=== PATIENT | female | born 1945 | race Caucasian/White ===

== ENCOUNTER → 2016-12-15 | Outpatient (CLI) | payer OTHER ==
[~2016-12-15] MED LIST: CALC-354 PO; CHLO4TAB70 PO; DICL1GEL12 TOP; FLUO0.05 TOP; GLUCTAB54 PO; LISI-461 PO; METR0.754 TOP; MULT-506 PO; TROL10LO PO
[2016-12-15 11:12] LABS: ALT/SGPT 19 U/L (12-78); AST/SGOT 11 U/L (15-37); BLOOD UREA NITROGEN 15 mg/dl (7-18); BUN/CREATININE RATIO 18.1 (10-20); CALCIUM 9.1 mg/dl (8.5-10.1); CARBON DIOXIDE 30 mmol/L (21-32); CHLORIDE 107 mmol/L (98-107); CREATININE 0.82 mg/dl (0.60-1.20); GLUCOSE 84 mg/dl (70-99); SODIUM 144 mmol/L (136-145)
[2016-12-15 11:15] LABS: ALB/GLOB RATIO 1.9 (0.9-2); ALKALINE PHOSPHATASE 50 U/L (45-117); CHOLESTEROL 315 mg/dl (0-200); CHOLESTEROL/HDL RATIO 3.5; HDL CHOLESTEROL 89 mg/dl; LDL CHOLESTEROL CALCULATED 208 mg/dl; TRIGLYCERIDES 88 mg/dl (0-150); VERY LOW DENSITY LIPOPROT CALC 18 mg/dl
== END | disposition home or self-care (01) ==
LOC: C.LABBC 08:21
PROVIDERS: ATTEND Family Medicine
DX: E78.5 Hyperlipidemia, unspecified (principal); I10 Essential (primary) hypertension

== ENCOUNTER → 2017-06-29 | Outpatient (CLI) | payer OTHER ==
[2017-06-29 11:24] LABS: ALT/SGPT 25 U/L (12-78); BLOOD UREA NITROGEN 14 mg/dl (7-18); BUN/CREATININE RATIO 18.5 (10-20); CALCIUM 9.1 mg/dl (8.5-10.1); CARBON DIOXIDE 28 mmol/L (21-32); CHLORIDE 106 mmol/L (98-107); CHOLESTEROL 325 mg/dl (0-200); CREATININE 0.74 mg/dl (0.60-1.20); GLUCOSE 91 mg/dl (70-99); POTASSIUM 3.9 mmol/L (3.5-5.1); SODIUM 140 mmol/L (136-145)
[2017-06-29 11:34] LABS: ALB/GLOB RATIO 1.6 (0.9-2); ALKALINE PHOSPHATASE 57 U/L (45-117); AST/SGOT 20 U/L (15-37); CHOLESTEROL/HDL RATIO 3.6; HDL CHOLESTEROL 90 mg/dl; LDL CHOLESTEROL CALCULATED 218 mg/dl; TRIGLYCERIDES 83 mg/dl (0-150); VERY LOW DENSITY LIPOPROT CALC 17 mg/dl
== END | disposition home or self-care (01) ==
LOC: C.LABBC 08:49
PROVIDERS: ATTEND Family Medicine
DX: E78.5 Hyperlipidemia, unspecified (principal); I10 Essential (primary) hypertension; M19.049 Primary osteoarthritis, unspecified hand; M85.80 Other specified disorders of bone density and structure, unspecified site

== ENCOUNTER → 2017-08-11 | Outpatient (CLI) | payer OTHER ==
--- NOTE | 2017-08-11 13:42 | MAMMOGRAPHY REPORT ---
BILATERAL DIGITAL SCREENING MAMMOGRAM WITH CAD: 08/11/2017 CLINICAL HISTORY: Routine screening. Patient has no complaints. TECHNIQUE: Current study was also evaluated with a Computer Aided Detection (CAD) system. Bilateral CC and MLO views were obtained. COMPARISON: Comparison is made to exams dated: 08/05/2016 mammogram, 07/31/2015 mammogram, 07/30/2014 ultrasound, 07/30/2014 mammogram, 03/13/2012 mammogram, and 03/09/2010 mammogram - [facility]. BREAST COMPOSITION: There are scattered areas of fibroglandular density in both breasts. FINDINGS: No suspicious masses, calcifications, or areas of architectural distortion are noted in ei ther breast. There has been no significant interval change compared to prior exams. A linear scar ma rker denotes a scar on the left anterior breast. IMPRESSION: ACR BI-RADS CATEGORY 1: NEGATIVE There is no mammographic evidence of malignancy. A 1 year screening mammogram is recommended. The pa tient will receive written notification of the results. Approximately 10% of breast cancers are not detected with mammography. A negative mammographic report should not delay biopsy if a clinically suggestive mass is present. Criselda Barrow M.D. /:08/11/2017 12:20:19 [employer] Parer: Letty Gomez, [facility] letter sent: Normal 1/2 BI-RADS Code: ACR BI-RADS Category 1: Negative
== END | disposition home or self-care (01) ==
LOC: C.MAMM 09:12
PROVIDERS: ATTEND Obstetrics & Gynecology
DX: Z12.31 Encounter for screening mammogram for malignant neoplasm of breast (principal)

== ENCOUNTER → 2017-09-04 | Outpatient (CLI) | payer OTHER | END | disposition home or self-care (01) | LOC: C.PAPS 18:30 | PROVIDERS: ATTEND Obstetrics & Gynecology | DX: Z01.419 Encounter for gynecological examination (general) (routine) without abnormal findings (principal) ==

== ENCOUNTER → 2018-01-22 | Outpatient (CLI) | payer OTHER ==
[2018-01-22 14:40] LABS: ALT/SGPT 23 U/L (12-78); BLOOD UREA NITROGEN 12 mg/dl (7-18); CALCIUM 8.8 mg/dl (8.5-10.1); CARBON DIOXIDE 27 mmol/L (21-32); CREATININE 0.76 mg/dl (0.60-1.20); GLUCOSE 91 mg/dl (70-99); POTASSIUM 3.8 mmol/L (3.5-5.1); SODIUM 140 mmol/L (136-145)
[2018-01-22 14:44] LABS: CHOLESTEROL 183 mg/dl (0-200); LDL CHOLESTEROL CALCULATED 92 mg/dl
== END | disposition home or self-care (01) ==
LOC: C.LABBC 09:27
PROVIDERS: ATTEND Family Medicine
DX: E78.5 Hyperlipidemia, unspecified (principal)

== ENCOUNTER → 2018-03-01 | Outpatient (CLI) | payer OTHER | END | disposition home or self-care (01) | LOC: C.MAMM 10:12 | PROVIDERS: ATTEND Family Medicine | DX: Z78.0 Asymptomatic menopausal state (principal) ==

== ENCOUNTER 2025-05-02 05:25 | Observation (INO) ==
--- NOTE | 2025-01-22 16:22 | PAT Medication Instructions ---
Medication Instructions Date of Service January 22, 2025 Home Medications Medication Instructions Recorded triamcinolone acetonide 0.1 % 1 applic topical DAILY PRN rash 2 01/22/25 topical cream weeks #15 grams calcium ER 600 mg (as carb,cit)-D3 12.5 mcg (500 unit) tablet, ext.rel (Citracal-D3 Slow Release) 1 tab PO DAILY multivitamin (Daily Multi-Vitamin tablet) 1 tab PO DAILY cetirizine 10 mg capsule (Zyrtec) 10 mg PO DAILY PRN allergies diclofenac sodium 1 % topical gel (Voltaren Arthritis Pain) 1 inch topical BID PRN Pain losartan 100 mg-hydrochlorothiazide 12.5 mg tablet 1 tab PO QAM triamcinolone acetonide 0.1 % topical cream 1 applic topical DAILY PRN rash STOP taking 24 hours before surgery diclofenac sodium 1 % topical gel (Voltaren Arthritis Pain) 1 inch topical BID PRN Pain triamcinolone acetonide 0.1 % topical cream 1 applic topical DAILY PRN rash DO NOT take the morning of surgery calcium ER 600 mg (as carb,cit)-D3 12.5 mcg (500 unit) tablet, ext.rel (Citracal-D3 Slow Release) 1 tab PO DAILY multivitamin (Daily Multi-Vitamin tablet) 1 tab PO DAILY cetirizine 10 mg capsule (Zyrtec) 10 mg PO DAILY PRN allergies losartan 100 mg-hydrochlorothiazide 12.5 mg tablet 1 tab PO QAM MORNING OF SURGERY: NOTHING TO EAT OR DRINK AFTER MIDNIGHT Take evening before surgery cetirizine 10 mg capsule (Zyrtec) 10 mg PO DAILY PRN allergies (if needed) Other Notes If you have any questions please call us at [phone] or [phone] or [phone] or [phone]
--- NOTE | 2025-01-28 11:22 | Anesthesiology Consultation ---
Date of Service January 28, 2025 Assessment & Plan (1) Encounter for pre-operative examination: - awaiting [place] PCP response to workload note regarding below symptoms/abnormal pre-op testing/clearance. - dizziness described as "drifting to the right side when walking in the middle of the night" since starting HCTZ; bilat bruit vs murmur radiation on exam today ; denies presyncope, syncope, visual changes, headache-states occasionally has left arm numbness when laying in bed which resolves with position change; reports home reading this morning at 155/85. Denies change in chronic leg swelling. Case discussed in detail with Dr. Colón who advised patient will need PCP clearance, he states would not require testing from an anesthesia standpoint-will defer to PCP. Patient made aware at PAT appointment, she verbalized understanding and denied questions or concerns. Surgeon's office made aware. - PCP office visit 01/22/25 [place]: "...intermittent leg swelling. right > left. legs will get swollen for a few days then improve. did have chips last night. once she elevates legs, swelling seems to improve. has knee OA, she has upcoming procedure for right knee, feels this is contributing to knee swelling. no calf redness, warmth, tenderness. rash on legs...hypertension...Not at goal. Will add hctz to current meds, discussed medication and possible s/e. Low salt diet. Discussed f/u, she would like to f/u in approx 2 mos due to have knee surgery in a few weeks. F/u sooner PRN..." - Outpatient joint assessment: Patient is currently scheduled for inpatient pathway. If re-evaluated and patient/surgeon requests outpatient pathway, patient is not a candidate for outpatient joint program. Chart Review Chart Review: Pending: Refer to Additional Notes / Consult section and Patient seen in Pre Admission Testing Teaching & Discussion Pre-Anesthesia Teaching/Discussion Notes: Instructed NPO after midnight before surgery, except medications with 15 cc of water. Medication instructions provided according to the PAT guidelines. History Surgery Operation Date: 02/17/25 07:15 Proposed Procedures p Right Total Knee Arthroplasty - Alexandre Calabrese, Height/Weight Height: 5 ft 5 in Weight: 63.2 kg Allergies Allergy/AdvReac Type Severity Reaction Status Date / Time latex Allergy Mild RASH Verified 01/22/25 15:23 nickel Allergy Mild Rash Verified 01/22/25 15:41 Medications Home Medications Medication Instructions Recorded Confirmed Last Taken calcium ER 600 mg (as carb,cit)-D3 1 tab PO DAILY 06/01/20 01/22/25 Unknown 12.5 mcg (500 unit) tablet, ext.rel (Citracal-D3 Slow Release) multivitamin (Daily Multi-Vitamin 1 tab PO DAILY 06/01/20 01/22/25 Unknown tablet) cetirizine 10 mg capsule (Zyrtec) 10 mg PO DAILY PRN allergies 07/18/23 01/22/25 Unknown diclofenac sodium 1 % topical gel 1 inch topical BID PRN Pain 01/22/25 01/22/25 Unknown (Voltaren Arthritis Pain) losartan 100 1 tab PO QAM 01/22/25 01/22/25 Unknown mg-hydrochlorothiazide 12.5 mg tablet triamcinolone acetonide 0.1 % 1 applic topical DAILY PRN rash 2 01/22/25 01/22/25 Unknown topical cream weeks #15 grams Past Medical History Medical History (Updated 01/29/25 @ 08:43 by Gena Pantoja PA-C) Aortic stenosis mild on 06/2022 echo (MANPREET 1.0 cm2, max PG 19 mmHg, mean PG 10 mmHg) Benign essential HTN controlled, stable per pt GERD (gastroesophageal reflux disease) rare, diet triggered Hyperlipidemia Mitral regurgitation Mixed conductive and sensorineural hearing loss of left ear with restricted hearing of right ear no hearing aides Osteoarthritis of knees, bilateral Osteopenia Varicose veins of both lower extremities Patient denies h/o stroke, seizures, heart attack, heart failure, DM, blood clots/DVTs or blood transfusions. Exercise / Class Metabolic Activity II 4-5 Yardwork/Stairs/Walk up hill (denies chest discomfort or shortness of breath with one flight of stairs) Past Family History Family History (Updated 01/28/25 @ 11:28 by Gena Pantoja PA-C) Mother Hypertension Stroke syndrome Cardiac disorder FHx: allergies Aortic aneurysm Father Chronic liver disease Renal cell carcinoma Grandfather (Paternal) Acute myocardial infarction Daughter Diabetes Thyroid disease Brother Prostate cancer Grandmother (Maternal) Stroke syndrome Other Cancer Hearing loss No family history of adverse response to anesthesia No family history of bleeding disorder Denies family history of Malignant hypothermia due to anesthesia Colon cancer Ovarian cancer Myocardial infarction Breast cancer Bleeding disorder Past Surgical History Surgical History H/O breast surgery (2014) left retroareolar excision- blocked milk duct Hx of cataract surgery (2013) b/l Hx of eye surgery left eye, had corneal ulcer from a contact ~ 40 years ago Hx of tonsillectomy (1949) Hx of tooth extraction has 4 implants Past Anesthesia History No Hx of Anesthesia Complications and No Family Hx of Anesthesia Complications History of PONV No Hx of PONV and No Hx of Motion Sickness Social History Smoking Status: Never smoker Do You Dip or Chew Tobacco: No Hx Alcohol Use: Yes Alcohol type: wine alcohol intake frequency: holidays/special occasions only Hx Substance Use: No substance use type: does not use Review of Systems Infrequent snoring, denies witnessed apneas. Patient denies chest pain, shortness of breath, dyspnea on exertion, fever, chills, cough, wheezing, or palpitations. Physical Exam Vital Signs Vitals BP 145/87 P 73 TEMP 98.3 SP02 98% on RA RESP 18 Physical Patient resting comfortably in chair in no acute distress, alert and oriented, responding appropriately throughout visit Full cervical extension range of motion without pain TMD 3.5 finger breadths Mallampati Score 2 Dentition: several implants and several caps/crowns; denies chipped or loose teeth, or bridges Lungs: normal respiratory effort. Good air movement, clear throughout to auscultation, no adventitious breath sounds Cardiac: regular rate and rhythm, 3/6 systolic murmur Carotid arteries: bruit bilat Lab Results Anesthesia Preop Results Results Anesthesia Widget: WBC 6.11 K/ul (4.8-10.8) 01/28/25 Hgb 10.1 g/dl (12.0-16.0) L 01/28/25 Hct 31.0 % (37.0-47.0) L 01/28/25 Plt 360 K/uL (130-400) 01/28/25 Na 128 mmol/L (136-145) L 01/28/25 K 3.9 mmol/L (3.5-5.1) 01/28/25 Cl 94 mmol/L (98-107) L 01/28/25 CO2 28 mmol/L (21-32) 01/28/25 BUN 15 mg/dl (6-23) 01/28/25 Creat 0.69 mg/dl (0.6-1.2) 01/28/25 Glucose Level 90 mg/dl (70-99(Fasting)) 01/28/25 PT 10.3 Seconds (9.0-12.0) 01/28/25 PTT 33 Seconds (21-31) H 01/28/25 INR 0.9 (0.9-1.1) 01/28/25 Blood Type O Positive 01/28/25 Antibody Screen NEGATIVE 01/28/25 Testing Electrocardiogram Date: 01/28/25 NSR, rate 73 bpm RBBB Chest X-Ray Date: 01/28/25 Heart size and pulmonary vasculature are normal. No effusion or consolidation. There is mild ectasia of the aortic knob. No acute findings. Echocardiogram Date: 07/05/22 LVEF 60-65% No regional wall motion abnormalities Mildly dilated atria Moderate cLVH Mild valvular aortic stenosis (MANPREET 1.0 cm2, max PG 19 mmHg, mean PG 10 mmHg) Mild mitral regurgitation
--- NOTE | 2025-05-01 14:17 | History & Physical Report ---
Date of Service May 01, 2025 Assessment & Plan (1) Osteoarthritis of right knee: We will proceed with a right total knee arthroplasty. Postoperatively, she will be started on aspirin for DVT prophylaxis and kept overnight in the hospital for postop medical management. She plans to use energy physical therapy upon discharge. History of Present Illness Chief Complaint: Osteoarthritis of the right knee. Primary Care Provider: Griselda Salazar MD Jenny is a pleasant 80-year-old female who has been dealing with chronic increasing right knee pain. X-rays and clinical exam have been diagnostic for advanced arthritis of the right knee. After failing extensive conservative treatment, she has elected proceed with a right total knee arthroplasty. Allergies Allergy/AdvReac Type Severity Reaction Status Date / Time latex Allergy Mild RASH Verified 04/28/25 09:24 nickel Allergy Mild Rash Verified 04/28/25 09:24 Home Medications Medication Instructions Recorded Confirmed Type multivitamin (Daily Multi-Vitamin 1 tab PO DAILY 06/01/20 04/28/25 History tablet) cetirizine 10 mg capsule (Zyrtec) 10 mg PO DAILY PRN allergies 07/18/23 04/28/25 History diclofenac sodium 1 % topical gel 1 inch topical BID PRN Pain 01/22/25 04/28/25 History (Voltaren Arthritis Pain) metoprolol succinate 100 mg 100 mg PO QPM #90 tabs 02/13/25 04/28/25 Rx tablet,extended release 24 hr acetaminophen 500 mg tablet 500 mg PO Q6H PRN prn 04/22/25 04/28/25 History ascorbic acid (vitamin C) 500 mg 1,000 mg PO QPM 04/22/25 04/28/25 History tablet (Vitamin C) losartan 100 mg tablet 100 mg PO QPM 04/22/25 04/28/25 History Past Med/Surg History Problem List Cardiac murmur Dysfunction of left eustachian tube Allergic rhinitis (Chronic) Benign essential hypertension (Chronic) Hyperlipidemia (Chronic) Mixed conductive and sensorineural hearing loss of left ear with restricted hearing of right ear (Chronic) Osteopenia (Chronic) Primary osteoarthritis, unspecified hand (Chronic) Varicose veins of both lower extremities (Chronic) Medical History Cardiac murmur initial appt with Dr Brown 07/01/2025 Scoliosis mild GERD (gastroesophageal reflux disease) rare, diet triggered Mitral regurgitation Aortic stenosis mild on 06/2022 echo (MANPREET 1.0 cm2, max PG 19 mmHg, mean PG 10 mmHg), scheduled to see Dr Brown initial visit 07/01/2025 Benign essential HTN controlled, stable per pt 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 no hearing aides Hyperlipidemia Osteopenia Osteoarthritis of knees, bilateral Surgical History Hx of eye surgery left eye, had corneal ulcer from a contact ~ 40 years ago Hx of tooth extraction has 4 implants H/O breast surgery (2014) left retroareolar excision- blocked milk duct Hx of cataract surgery (2013) bilateral Hx of tonsillectomy (1949) Family History Mother Hypertension Stroke syndrome Cardiac disorder FHx: allergies Aortic aneurysm Father Chronic liver disease Renal cell carcinoma Grandfather (Paternal) Acute myocardial infarction Daughter Diabetes Thyroid disease Brother Prostate cancer Grandmother (Maternal) Stroke syndrome Other Cancer Hearing loss No family history of adverse response to anesthesia No family history of bleeding disorder Denies family history of Malignant hypothermia due to anesthesia Colon cancer Ovarian cancer Myocardial infarction Breast cancer Bleeding disorder Social History Smoking Status: Never smoker Second Hand Exposure: No; Do You Dip or Chew Tobacco: No; Tobacco Cessation Education Requested by Patient: No Hx Alcohol Use: Yes Alcohol type: wine Alcohol Intake Frequency: Monthly or Less Hx Substance Use: No Preferred Language: Surinamese Communication Ability: Effective Visual Impairment: No Limitations Hearing Ability: Hard of Hearing Car Seat Coverer Required: No Beliefs That Will Affect Care: None marital status: Current Living Situation: Spouse Current Living Situation Comment: lives with spouse current occupational status: retired current occupation: used to work as an application integration architect How many Children do You have: 2 Other Information That Helps Us Care for You: No Feels Safe at Home: Yes Safety Concerns: Feels Safe At This Time Childhood Exposure to Second-Hand Smoke: Yes Diet: regular caffeine: Yes (1 cup/day) during the past year weight has: remained stable Dental Care, Regularly: Yes Physical Activity Frequency: Daily Seatbelt Use: always Sunscreen Use: No Assistive Devices: None Review of Systems All systems reviewed & are unremarkable except as noted in HPI & below. Physical Exam Physical exam of the right knee, she has slight varus deformity. Tenderness palpation of the distal medial femoral condyle and over the medial joint line.. Constitutional WD/WN, vitals as above Eyes PERRL, conjunctivae normal, anicteric sclerae ENMT external ear and nose normal, oropharynx normal Neck trachea midline, no thyromegaly Respiratory normal respiratory effort Cardiovascular RRR, no murmur, no edema Gastrointestinal (Abdomen) normal bowel sounds, soft, nontender, no hepatosplenomegaly Psychiatric A+Ox3, euthymic affect Results & Data Results & Data Laboratory Results . Diagnostic Findings X-rays of the right knee show advanced osteoarthritis with joint space narrowing, osteophyte formation, and [id number] articulation PG Care Time/CCT Total # of Minutes Spent Total Time Spent with Patient: Total time spent is greater than 50% in coordination of care (as documented) at patient's floor/unit and/or counseling patient: Coding Level of Care Code None Diagnoses Osteoarthritis of right knee M17.11
[~2025-05-02 05:25] MED LIST changes: -CALC-354 PO; -CHLO4TAB70 PO; -DICL1GEL12 TOP; -FLUO0.05 TOP; -GLUCTAB54 PO; -LISI-461 PO; +LR 500ML BOLUS, THEN 15ML/HR IV SCH; -METR0.754 TOP; -MULT-506 PO; -TROL10LO PO
[2025-05-02] MEDS: LR 60ML/HR IV SCH (05:54)
[2025-05-02] MEDS: LR 500ML BOLUS, THEN 15ML/HR IV SCH (05:54)
[2025-05-02] MEDS: GABAPENTIN 300 MG CAP PO SCH (05:57)
[2025-05-02] MEDS: FAMOTIDINE 20 MG TAB PO SCH (05:57)
[2025-05-02] MEDS: dexAMETHasone**PF** 10 MG/ML VIAL IV SCH (05:57)
[2025-05-02] MEDS: ACETAMINOPHEN 500 MG TAB PO SCH ×2 (05:57→14:14)
[2025-05-02] MEDS ORDERED: ROPIVACAINE 0.5% 5 MG/ML 30 ML VIAL ONE (06:11)
--- NOTE | 2025-05-02 06:33 | History & Physical Bridge Note ---
Date of Service May 02, 2025 History & Physical Bridge Note I have examined the patient, reviewed the History & Physical and in the interval since the performance of the History & Physical I have noted the following changes of clinical significance: no changes noted
[2025-05-02] MEDS ORDERED: MIDAZOLAM HCL 1 MG/ML 2ML VIAL ONE (06:34)
[2025-05-02] MEDS ORDERED: ATROPINE SULFATE 0.1 MG/ML 10ML SYR IV PRN (06:36)
[2025-05-02] MEDS ORDERED: LABETALOL HCL IV 5 MG/ML 20ML IV PRN (06:36)
[2025-05-02] MEDS ORDERED: PROMETHAZINE HCL 6.25 MG in SODIUM CHLORIDE 0.9% 50 ML IV PRN (06:36)
[2025-05-02] MEDS ORDERED: DEXAMETHASONE SOD INJ 4 MG/ML VIAL ONE (06:39)
[2025-05-02] MEDS ORDERED: ONDANSETRON INJ 2 MG/ML 2 ML VIAL ONE (06:39)
[2025-05-02] MEDS ORDERED: ROCURONIUM BROMIDE 10 MG/ML 5 ML VIAL IV ONE (06:39)
[2025-05-02] MEDS ORDERED: PROPOFOL IV EMULSION 10 MG/ML 20 ML VIAL IV ONE (06:39)
[2025-05-02] MEDS ORDERED: LIDOCAINE 2% 2 ML VIAL/AMP(20MG/ML) INFIL ONE (06:39)
[2025-05-02] MEDS ORDERED: PHENYLEPHRINE 100MCG/ML 5ML SYR ONE (06:39)
[2025-05-02] MEDS: TRANEXAMIC ACID 1,000 MG **IV Pre-op IV SCH (06:42)
[2025-05-02] MEDS ORDERED: ETOMIDATE 2 MG/ML 20 ML VIAL IV ONE (07:02)
[2025-05-02] MEDS: ROPIV 0.5% 246mg, Ketorolac 30mg, EPINEPHrine 0.5mg in NSS INFIL SCH (07:31)
[2025-05-02] MEDS: ORTHO JOINT ANESTHETIC ONE (07:32)
[2025-05-02] MEDS ORDERED: SUGAMMADEX SODIUM 200 MG/2 ML VIAL IV ONE (08:01)
--- NOTE | 2025-05-02 08:03 | Operative Report ---
PG Post Operative Report Pre & Post Diagnosis Operation Date: 05/02/25 07:00 Pre-Op Diagnosis: Right Knee Osteoarthritis Post-Op Diagnosis: Right Knee Osteoarthritis I identified the patient and participated in the time-out.: Yes Procedure Operation Date: 05/02/25 07:00 Actual Procedures p Right Total Knee Arthroplasty(Right) - Alexandre Calabrese DO Surgeon Alexandre Calabrese DO [employer] Nikita Cooley PA-C Estimated Blood Loss 30 Findings Consistent with Post-Op Diagnosis Specimens Right femoral and tibial bone Description of Procedure Implants used: I used a [employer]lyx Persona total knee arthroplasty system with a size 7 standard PS femur, D tibia, 31 oval patella, and a size 12 CPS polyethylene bearing. All components were cemented in place with Biomet cement. Jenny arrived [facility] for the above procedure. She was seen in the preoperative holding area and the operative extremity was identified and signed. She was given a preoperative antibiotic, TXA, a spinal anesthetic and an adductor nerve block. She was taken back to the operating room and laid on the table in supine position. She was given basic sedation. The operative knee was then prepped and draped in sterile fashion. A timeout was done, and the patient and the operative extremity was properly identified. A midline incision was made directly over the patella. Dissection was taken down to the extensor mechanism. A medial parapatellar arthrotomy was used. The medial retinaculum was released and the fat pad was mostly excised. The knee was flexed and the ACL, PCL, and meniscus were removed. A drill was sent down the center of the femoral canal followed by an intramedullary alexander. Off that alexander a distal femoral cutting block was placed. 9 mm was resected off the distal femur at 5 of valgus. A posterior referencing AP sizing guide was then placed on the distal femur. The femur measured to be a size 7. 2 drill holes were placed in 3 of external rotation. A 4-in-1 cutting block was then impacted into place. Anterior, posterior, and chamfer cuts were then made. The proximal tibia was then exposed. An external tibial alignment guide was placed. A tibial cut guide was then anchored in place and the proximal tibia was then resected. The posterior aspect of the knee was then opened up and any additional meniscus fragments and osteophytes were removed. The tibia measured to be a size D. The tibial plate was then placed in the appropriate rotation and the tibia was drilled and punched. Trial components were then placed. I used a size 12 CPS polyethylene insert. The knee was brought through a full range of motion and felt to be stable. The peg holes for the femoral component were then drilled. The patella was then everted and 9 mm was resected off the posterior aspect of the patella. The patella measured to be a size 31 oval. 3 peg holes were then drilled. A trial patella was placed. The knee was once again brought through a full range of motion and felt to be stable. Trial components were then removed. The surrounding soft tissues were injected with 100 cc of an orthopedic pain control cocktail. All components were then cemented into place with Biomet cement. The final polyethylene insert was then snapped into place. Once cement was dry the tourniquet was deflated. Hemostasis was obtained. A dilute betadyne lavage was then done for 3 minutes. The joint was then irrigated with normal saline solution. The medial parapatellar arthrotomy was then closed with #1 Vicryl suture. The skin was closed with 2-0 Vicryl, 3-0V lock suture, and cheryl. A soft compressive dressing was placed. She was then transferred to a hospital bed and taken to the postanesthesia care unit in stable condition. She tolerated the procedure well. Nikita Cooley PA-C, was present for the entire procedure. He was critical for patient positioning, prepping, draping, retraction exposure, wound closure and application of sterile dressing. I attest to the content of the Intraoperative Record and any orders documented therein. Any exceptions are noted below.
[2025-05-02] MEDS: KETOROLAC 30 MG/ML VIAL IV PRN (08:36)
[2025-05-02] MEDS: HYDROmorphone INJ 1 MG/ML SYRINGE IV PRN (08:38)
[2025-05-02] MEDS: METOPROLOL TARTRATE 1 MG/ML VIAL IV PRN (08:44)
--- NOTE | 2025-05-02 08:51 | XRay Report ---
TWO VIEWS RIGHT KNEE CLINICAL HISTORY: Postoperative examination. FINDINGS: AP and crosstable lateral portable views of the right knee are compared to study dated 2024. A right knee arthroplasty is in near anatomic alignment. There has been undersurface remodeling of the patella. No acute fracture is seen. There are expected postoperative changes around the knee including soft tissue edema and subcutaneous gas. There is mild atherosclerotic calcification of the popliteal artery. IMPRESSION: Expected postoperative changes status post right knee arthroplasty. No acute fracture is seen. ACT 112: Negative or not required by law. Electronically signed by: Quentin Wilder M.D. 05/02/2025 8:50 AM
[2025-05-02] MEDS ORDERED: METOCLOPRAMIDE HCL INJ 5 MG/ML 2 ML VIAL IV PRN (09:57)
[2025-05-02] MEDS ORDERED: HYDROmorphone INJ 0.5 MG/0.5 ML SYR IV PRN (09:57)
[2025-05-02] MEDS ORDERED: MAGNESIUM HYDROXIDE SUSP 30 ML UDC PO PRN (09:57)
[2025-05-02] MEDS ORDERED: ONDANSETRON INJ 2 MG/ML 2 ML VIAL IV PRN (09:57)
[2025-05-02] MEDS ORDERED: NALOXONE HCL 0.4 MG/1 ML VIAL/CARP IV PRN (09:57)
[2025-05-02] MEDS: METOPROLOL TARTRATE 1 MG/ML VIAL IV ONE (09:58)
[2025-05-02] MEDS: SODIUM CHLORIDE 0.9% 1,000 ML IV SCH (10:22)
[2025-05-02] MEDS: DOCUSATE SODIUM 100 MG CAP PO SCH (10:43)
[2025-05-02] MEDS: KETOROLAC TROMETHAMINE 15 MG/ML VIAL IV SCH (10:43)
[2025-05-02] MEDS ORDERED: LR 500ML BOLUS, THEN 15ML/HR IV SCH (11:00)
[2025-05-02] MEDS: MULTIVITAMIN TAB PO SCH (11:06)
--- NOTE | 2025-05-02 11:15 | Anesthesiology Progress Note ---
Date of Service May 02, 2025 Anesthesia Post Procedure Vital Signs Vital Signs: Temp Pulse Pulse Pulse Resp BP BP 05/02/25 11:04 36.6 C 71 18 180/88 H 05/02/25 10:39 66 18 181/79 H 05/02/25 10:00 05/02/25 10:00 36.4 C L 61 18 171/83 H 05/02/25 09:35 36.5 C 62 12 168/85 H 05/02/25 09:24 62 12 176/83 H 05/02/25 09:15 62 12 183/82 H 05/02/25 09:05 63 12 173/83 H 05/02/25 08:59 62 188/84 H 05/02/25 08:55 64 14 188/84 H 05/02/25 08:45 62 16 179/64 H 05/02/25 08:44 71 204/75 H 05/02/25 08:35 66 15 196/67 H 05/02/25 08:26 36.5 C 71 15 192/71 H 05/02/25 05:43 36.6 C 64 20 194/82 H Pulse Ox O2 Del Method O2 Flow Rate 05/02/25 11:04 98 Nasal Cannula 2 05/02/25 10:39 98 Nasal Cannula 2 05/02/25 10:00 Nasal Cannula 2 05/02/25 10:00 95 Nasal Cannula 2 05/02/25 09:35 98 Nasal Cannula 2 05/02/25 09:24 99 Nasal Cannula 2 05/02/25 09:15 99 Nasal Cannula 2 05/02/25 09:05 96 Nasal Cannula 2 05/02/25 08:59 05/02/25 08:55 98 Oxymask 5 05/02/25 08:45 99 Oxymask 5 05/02/25 08:44 05/02/25 08:35 99 Oxymask 5 05/02/25 08:26 95 Oxymask 5 05/02/25 05:43 97 Room Air Pain Intensity Right Knee: Pain Intensity: 3 Transfer of Care Handoff Completed per policy Notes Mental Status: alert / awake / arousable Patient Amnestic to Procedure: Yes Nausea / Vomiting: adequately controlled Pain: adequately controlled Airway Patency, RR, SpO2: stable & adequate BP & HR: stable & adequate Hydration State: stable & adequate Anesthetic Complications: no major complications apparent
[2025-05-02] MEDS: ASPIRIN 81 MG ECTAB PO SCH (19:37)
[2025-05-02] MEDS: METOPROLOL SUCC 50MG EXT REL TAB PO SCH (19:38)
[2025-05-02] MEDS: LOSARTAN POTASSIUM 50 MG TAB PO SCH (19:38)
[2025-05-02] MEDS: SENNA 8.6 MG TAB PO SCH (20:14)
--- NOTE | 2025-05-03 08:18 | Orthopedic Progress Note ---
Date of Service May 03, 2025 Assessment & Plan (1) Status post right knee replacement: Overall she is doing fairly well. She is not having much pain in her right knee. She has been up and ambulating to the bathroom. She is on aspirin for DVT prophylaxis. She will be seen by physical therapy today for ambulation and range of motion exercises. The nursing staff can remove the Anthony wrap and leave the [place] after physical therapy. She can be discharged to home later today. She will follow-up with orthopedics in 2 weeks. Yen Alvarado was seen examined at bedside this morning. Overall she is doing very well. She is not having much pain in the right knee. She has been up and ambulating to the bathroom. She has no complaints.. Review of Systems All systems reviewed & are unremarkable except as noted in HPI & below. Physical Exam Physical examination of the right knee, the dressing is clean and dry. Her leg is out full extension. She has active dorsiflexion plantarflexion of her right ankle.. Results & Data Results & Data Laboratory Results . Diagnostic Findings Postoperative x-rays of the right knee show the prosthesis to be in anatomic alignment without any evidence of fracture complication, or loosening.. PG Care Time/CCT Total # of Minutes Spent Total Time Spent with Patient: Total time spent is greater than 50% in coordination of care (as documented) at patient's floor/unit and/or counseling patient: Coding Level of Care Code 23080 Post Operative Follow-Up Diagnoses Status post right knee replacement Z96.651
[2025-05-03 09:16] VITALS: BP 127/70; PULSE 63; RESP 16; TEMP 98.1; O2SAT 96
== END 2025-05-03 11:41 | disposition home or self-care (01) ==
LOC: 3E 05:25 → ASU 05:25